=== PATIENT | female | born 1985 | race Caucasian/White ===

== ENCOUNTER 2017-11-03 20:30 | Emergency (ER) | payer MEDICAID, SELFPAY ==
[2017-11-03 20:54] VITALS: BP 139/88; PULSE 91; RESP 20; TEMP 36.9; O2SAT 95; BMI 57.5
--- NOTE | 2017-11-03 21:02 | HMH.EDUTC ---
[facility] – [place] Disposition Clinical Impression: Contusion of left foot Qualifiers: Encounter type: initial encounter Qualified Code(s): S90.32XA - Contusion of left foot, initial encounter Disposition: Home, Self-Care Condition on Discharge: Good Instructions: DI for Contusion Referrals: Yumiko Allen [Primary Care Provider] - Time of Disposition: 21:32 Medical Decision Making - Darryl Inquiry Pt receiving controlled substance: No Vital Signs: 11/03/17 20:54 Temperature 98.4 F Temperature Source Temporal Artery Scan Pulse Rate [Right Radial] 91 H Respiratory Rate 20 Blood Pressure [Right Arm] 139/88 Blood Pressure Mean [Right Arm] 105 02 Sat by Pulse Oximetry 95 Oxygen Delivery Method Room Air Orders (Tests/Meds): ORDERS Category Date Time Status Foot XR left minimum 3 views [XR foot LT min 3V] Stat Exams 11/03/17 21:06 Taken - Radiology Data #1 Image(s): Foot/Toes Image Reviewed: Yes I reviewed the patient's radiology results Preliminary Findings: No Fracture Seen [facility] – [place] HPI - General Stated complaint: left foot pain Time Seen by Provider: 11/03/17 21:03 - History of Present Illness Provider Complaint: Patient 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 Onset (ago): minute(s) (30) Location: left, lower extremity Exacerbating factors: immobilization Treatments prior to arrival: none - Related Data Allergies Allergy/AdvReac Type Severity Reaction Status Date / Time NO KNOWN ALLERGIES - NKA Allergy Unknown Uncoded 08/06/17 14:07 [facility] History I have reviewed the patient's past medical history: Yes ROS Obtained: Yes All systems reviewed & no additional complaints - Musculoskeletal Musculoskeletal: Reports as per HPI Physical Exam - General General appearance: alert, in no apparent distress - Head Head exam: atraumatic, normocephalic - Respiratory Respiratory exam: Present: normal lung sounds bilaterally - Cardiovascular Cardiovascular exam: Present: regular rate, normal rhythm - Abdominal Exam Abdominal exam: Present: soft - Expanded Lower Extremity Exam Left Ankle exam: Present: normal inspection, full ROM Foot/toe exam: Present: tenderness, swelling, ecchymosis, erythema Neurovascular/Tendon exam: Present: normal capillary refill, normal fine/light touch - Neurological Exam Neurological exam: Present: alert, oriented X3 - Psychiatric Psychiatric exam: Present: normal affect, normal mood - Skin Skin exam: Present: warm, dry
--- NOTE | 2017-11-03 21:06 | XR_ITS ---
XR foot LT min 3V COMPARISON: None HISTORY: Left foot pain after dropping heavy weight on foot TECHNIQUE: AP lateral and oblique views FINDINGS: The tarsal bones metatarsals and phalanges appear intact with no evidence of recent or old fracture. The plantar arch is normal. There is a prominent spur of the calcaneus at insertion of plantar tendon and a tiny spur at insertion of Achilles tendon. There is mild diffuse soft tissue swelling of the forefoot dorsally. IMPRESSION: Mild soft tissue swelling, left foot negative for fracture
--- NOTE | 2017-11-03 21:07 | ED_ITS ---
[facility] [place]: Contusion of left foot Qualifiers: Encounter type: initial encounter Qualified Code(s): S90.32XA - Contusion of left foot, initial encounter Disposition: Home, Self-Care Condition on Discharge: Good Instructions: DI for Contusion Referrals: Yumiko Allen [Primary Care Provider] - Time of Disposition: 21:32 Medical Decision Making - Darryl Inquiry Pt receiving controlled substance: No Vital Signs: 11/03/17 20:54 Temperature 98.4 F Temperature Source Temporal Artery Scan Pulse Rate [Right Radial] 91 H Respiratory Rate 20 Blood Pressure [Right Arm] 139/88 Blood Pressure Mean [Right Arm] 105 02 Sat by Pulse Oximetry 95 Oxygen Delivery Method Room Air Orders (Tests/Meds): ORDERS Category Date Time Status Foot XR left minimum 3 views [XR foot LT min 3V] Stat Exams 11/03/17 21:06 Taken - Radiology Data #1 Image(s): Foot/Toes Image Reviewed: Yes I reviewed the patient's radiology results Preliminary Findings: No Fracture Se[place] [facility] [place] - General Stated complaint: left foot pain Time Seen by Provider: 11/03/17 21:03 - History of Present Illness Provider Complaint: Patient dropped the glass insert from 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 Onset (ago): minute(s) (30) Location: left, lower extremity Exacerbating factors: immobilization Treatments prior to arrival: none - Related Data Allergies Allergy/AdvReac Type Severity Reaction Status Date / Time NO KNOWN ALLERGIES - NKA Allergy Unknown Uncoded 08/06/17 14:07 [facility] History I have reviewed the patient's past medical history: Yes ROS Obtained: Yes All systems reviewed & no additional complaints - Musculoskeletal Musculoskeletal: Reports as per HPI Physical Exam - General General appearance: alert, in no apparent distress - Head Head exam: atraumatic, normocephalic - Respiratory Respiratory exam: Present: normal lung sounds bilaterally - Cardiovascular Cardiovascular exam: Present: regular rate, normal rhythm - Abdominal Exam Abdominal exam: Present: soft - Expanded Lower Extremity Exam Left Ankle exam: Present: normal inspection, full ROM Foot/toe exam: Present: tenderness, swelling, ecchymosis, erythema Neurovascular/Tendon exam: Present: normal capillary refill, normal fine/light touch - Neurological Exam Neurological exam: Present: alert, oriented X3 - Psychiatric Psychiatric exam: Present: normal affect, normal mood - Skin Skin exam: Present: warm, dry
[2017-11-03 21:32] VITALS: BP 132/79; PULSE 85; RESP 18; TEMP 37; O2SAT 97
== END 2017-11-03 21:34 | disposition home or self-care (01) ==
PROVIDERS: Emergency Provider Physician Assistant; Family Provider Physician Assistant; PCP Physician Assistant
DX: S90.32XA Contusion of left foot, initial encounter (principal); W22.8XXA Striking against or struck by other objects, initial encounter; Y92.009 Unspecified place in unspecified non-institutional (private) residence as the place of occurrence of the external cause
CPT/HCPCS: 73630; 99201

== ENCOUNTER → 2018-01-15 13:19 | Outpatient (CLI) | payer MEDICAID, SELFPAY ==
--- NOTE | 2018-01-15 13:30 | XR_ITS ---
XR hip LT 2-3V w/pelvis HISTORY: ITS.REASON: LT HIP PAIN ORDERING PHYSICIAN: Michelle Isaacs PATIENT AGE: 32 years COMPARISON: None FINDINGS: No fracture or dislocation is evident. No significant degenerative change. No lytic or blastic change. Unremarkable soft tissues There is mild sclerosis of the left SI joint inferiorly IMPRESSION: 1. Negative left hip. 2. Mild sclerosis of the left SI joint
--- NOTE | 2018-01-15 13:30 | XR_ITS ---
EXAM: XR lumbar spine min 4V HISTORY: ITS.REASON: LOW BACK PAIN ORDERING PHYSICIAN: Michelle Isaacs PATIENT AGE: 32 years COMPARISON: None FINDINGS: Normal alignment. No fracture or dislocation. No lytic or blastic change. No significant degenerative change. The disc spaces are preserved. There is decrease in height anteriorly involving T12, T11, and T10 which may be developmental/chronic IMPRESSION: 1. Negative lumbar spine. 2. Suspect mild chronic wedging or developmental changes of T10 and T11 and T12
--- NOTE | 2018-01-15 13:30 | XR_ITS ---
XR knee LT 3V HISTORY: ITS.REASON: LT KNEE PAIN ORDERING PHYSICIAN: Michelle Isaacs PATIENT AGE: 32 years COMPARISON: None FINDINGS: No fracture or dislocation. No lytic or blastic change. Normal mineralization. Small osteophytes are present at the medial compartment and patellofemoral joint. 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
--- NOTE | 2018-01-15 13:30 | XR_ITS ---
XR hip RT 2-3V w/pelvis HISTORY: ITS.REASON: RT HIP PAIN ORDERING PHYSICIAN: Michelle Isaacs PATIENT AGE: 32 years COMPARISON: None FINDINGS: No fracture or dislocation is evident. No significant degenerative change. No lytic or blastic change. Unremarkable soft tissues IMPRESSION: Negative hip
--- NOTE | 2018-01-15 13:30 | XR_ITS ---
XR knee RT 3V HISTORY: ITS.REASON: RT KNEE PAIN ORDERING PHYSICIAN: Michelle Isaacs PATIENT AGE: 32 years COMPARISON: None FINDINGS: No fracture or dislocation. No lytic or blastic change. Normal mineralization. There is minimal osteophyte formation at the medial compartment and posterior patella. IMPRESSION: Minimal degenerative change medial compartment and patellofemoral joint otherwise negative right knee
== END ==
PROVIDERS: PCP Nurse Practitioner Family; Visit Provider Nurse Practitioner Family
DX: M54.5 Low back pain (principal); M25.552 Pain in left hip; M25.551 Pain in right hip; M25.561 Pain in right knee; M25.562 Pain in left knee
CPT/HCPCS: 72110; 73502; 73562